=== PATIENT | male | born 1955 | race Caucasian/White ===

== ENCOUNTER 2016-11-17 20:48 | Inpatient (IN) | payer OTHER ==
[~2016-11-17] VITALS: Ht 182.9 cm; Wt 68.5 kg
--- NOTE | 2016-11-17 23:04 | DIAGNOSTIC IMAGING REPORT ---
PROCEDURE: CT HEAD WITHOUT CONTRAST INDICATION: STROKE TECHNIQUE: Axial CT images were acquired through the head. Coronal and sagittal reformations were created. COMPARISON: None. FINDINGS: Minimal cerebral cortical atrophy. Minor hypodensity in the periventricular and subcortical white matter. 8 mm rounded hypodensity in the right caudate body. No focal cortical defects or edema. The goode-white matter differentiation is normal. No intracranial hemorrhage or extraaxial fluid collections. Ventricles are normal in size, shape and position. There is no mass, mass effect or midline shift. Trace calcific atherosclerosis of the intracranial internal carotid arteries. The calvarium is intact. Small dependent left mastoid effusion without coalescence. The paranasal sinuses and right mastoid air cells are normally aerated. The extracranial soft tissues and orbits are normal. IMPRESSION: 1. No CT evidence of acute intracranial process. 2. Small right caudate body hypodensity, potentially a small lacunar infarct. Otherwise minor, probably age related involutional and white matter changes. 3. Findings discussed with Dr. Cabrera at [address] scans at this facility use dose modulation, iterative reconstruction, and/or weight-based dosing when appropriate to reduce radiation dose to as low as reasonably achievable.
--- NOTE | 2016-11-17 23:31 | DIAGNOSTIC IMAGING REPORT ---
PROCEDURE: XR CHEST 2 VIEW INDICATION: Right upper and lower extremity weakness. TECHNIQUE: Two views COMPARISON: None. FINDINGS: The cardiomediastinal contour is normal. No central venous congestion. Expansion of the thoracic AP diameter. Flattening the diaphragm. Coarse upper lobe interstitial markings. No focal consolidation, pleural effusion or pneumothorax. The osseous structures are intact. IMPRESSION: 1. No acute disease. 2. Findings of COPD/emphysema.
[2016-11-18] VITALS (12 sets, daily range): BP systolic 108–149; BP diastolic 71–97
--- NOTE | 2016-11-18 02:10 | ED NURSING NOTES ---
Clinical Report - Nurses [facility] [address] [place] [address] 11/17/2016 20:48 Patient: CHARLETTE COLUNGA TRIAGE Triage time 20:53. Acuity: LEVEL 2. Chief Complaint: WEAKNESS and (Right upper arm and lower leg). PHI COMA SCORE: [place] Coma Scale: 15- eyes open spontaneously (4); best verbal response- oriented x 4 (5); best motor response- obeys commands (6). --20:59 Sheriff Benson R.N. 20:53 11/17/16. BP: 133/85. HR: 87. RR: 19. O2 saturation: 98%. Temp: 98.1 F. Pain level now: 0/10. --20:59 Sheriff Benson R.N. Weight: 68 kg stated. Height/Length: 72 inches Per Patient. BMI: 20.3. --20:53 Sheriff Benson R.N. Medications None. --20:56 Sheriff Benson R.N. Allergies No Known Drug Allergy. --20:56 Sheriff Benson R.N. History Arrived by private vehicle. Historian: patient. Accompanied by friend. This started 2 days ago. ( Woke up two days ago and felt weakness on right arm and right lower leg.). SURGERY HX: No history of previous surgery. SOCIAL HX: Light tobacco smoker- less than 1/2 a pack per day. No alcohol use or drug use. FALL RISK ASSESSMENT: Fall risk assessment completed. No fall risk identified. NUTRITIONAL RISK ASSESSMENT: The nutritional risk assessment revealed no deficiencies. LEARNING NEEDS ASSESSMENT: The learning needs assessment revealed no barriers. FUNCTIONAL ASSESSMENT: Functional assessment performed. Right sided weakness. SKIN INTEGRITY ASSESSMENT: Skin integrity risk assessment completed. No skin integrity risk identified. --20:59 Sheriff Benson R.N. PROBLEMS: Aneurysm, Cerebral. --20:57 Sheriff Benson R.N. PHYSICAL ASSESSMENT To room via wheelchair. Patient gowned. GENERAL / NEURO / PSYCH: Awake. Oriented X 4. Alert. Appears in no acute distress. Speech normal. Mood/affect normal. Finger-nose test severely abnormal on the right. Moves extremities with decreased movement of the left upper and lower extremity. Strength is unequal; left toy stuffer is greater than the right toy stuffer and left foot push/pull is greater than the right foot push/pull. The patient has had new onset of weakness of the right arm, hand, leg and foot. HEENT: No facial asymmetry noted. RESPIRATORY: Respirations not labored. CVS: Capillary refill less than 2 seconds. SKIN: Skin is intact, warm and dry. --21:02 Sheriff Benson R.N. NURSING PROGRESS NOTES Head of bed elevated. Two patient identifiers checked. Call light placed in reach. Side rails up x 2. Bed placed in lowest position. Brakes of bed on. --21: Sheriff Benson R.N. 21:03 11/17/2016 Site #1 started via IV in the left antecubital space with an 18g angiocath, with aseptic technique and good blood return; one attempt. Blood drawn: rainbow set. Labeled in the presence of the patient and sent to the lab. Saline lock flushed with 10 mL saline. --21:03 Sheriff Benson R.N. EKG time: (2100 PM). EKG was performed by a jena and shown to the ED physician and NANOFABRICATION SPECIALIST. --21:04 Sheriff Benson R.N. 22:10 11/17/16. BP: 114/89. HR: 93. RR: 20. O2 saturation: 96% on room air. Pain level now: 06/16. --22:11 Ernestine Blanca it administrator, pulse oximeter and NIBP monitor placed on patient; monitor alarms on. --22:11 Ernestine Blanca 23:19 11/17/16. BP: 120/87. HR: 87. RR: 18. O2 saturation: 97%. --23:20 Sheriff Benson R.N. 02:28 11/18/16. BP: 123/91. HR: 88. RR: 18. O2 saturation: 96%. Temp: 98 F. --: Sheriff Benson R.N. 03:14 11/18/2016 Aspirin PO Tablets 325 mg given. Allergies verified and confirmed 5 rights. --03:14 Ernestine Blanca. DISPOSITION / DISCHARGE 03:20 11/18/16. BP: 130/89. HR: 80. RR: 20. O2 saturation: 98% on room air. Temp: 98 F (oral). Pain level now: 0/10. --03:23 Ernestine Blanca Disposition: observation in Acute Care. Report was given to a nurse via a phone call. Report included patient's care, treatment, medications, reviewed medication reconcilliation, and condition (including any recent changes or anticipated changes). All questions were answered. Report was acknowledged and care was transferred. (Dee Dee LUX). Bed obtained. Patient's personal items include: shirt, pants, shoes and wallet; items were placed in belongings bag and transported with the patient. --03:30 Ernestine Blanca. Locked/Released at 11/22/2016 9:02 by Sheriff Benson R.N.
--- NOTE | 2016-11-18 02:10 | ED ORDER SUMMARY ---
..... Patient: CHARLETTE COLUNGA OrderSheet [facility] VisitID: [id number] [place] [address] 61y, M Registration Date/Time: 11/17/2016 ORDER SHEET Weight: 68.0 kg (stated) Allergies: No Known Drug Allergy GENERAL ORDERS: Chest 2V Urgent (22:11/17/2016 Barbara RAMIREZ) (Ack 22:14 AMcQuoid ER Tech1) (22:38 MCampbell) Wooden Frame Builder (Continuous) (22:11/17/2016 Barbara RAMIREZ) (22:10 SSambou R.N.) CT Head wo Cont Urgent (22:11/17/2016 Barbara RAMIREZ) (Ack 22:14 AMcQuoid ER Tech1) (22:38 MCampbell) Cardiac Panel Stat (22:11/17/2016 Barbara RAMIREZ) (Ack 22:14 AMcQuoid ER Tech1) (23:01 HSoule) CRP Urgent (22:11/17/2016 Barbara RAMIREZ) (Ack 22:14 AMcQuoid ER Tech1) (23:02 HSoule) Pulse oximeter (22:11/17/2016 Barbara RAMIREZ) (22:10 SSambou R.N.) EKG - ER Stat (22:11/17/2016 Barbara RAMIREZ) (22:09 SSambou R.N.) CT Cervical Spine wo Cont Urgent (00:05 11/18/2016 Barbara RAMIREZ) (Ack 0:06 AMcQuoid ER Tech1) (0:28 Willis) UA-Culture if indicated Urgent (02:28 11/18/2016 Barbara RAMIREZ) Urine Drug Screen Urgent (02:11/18/2016 Barbara RAMIREZ) MEDICATION ORDERS: Aspirin PO 325 mg (NOW) (03:09 11/18/2016 Barbara RAMIREZ) (Ack 3:10 HSoule) (3:14 HSoule) IV FLUIDS: IV Saline Lock (22:11/17/2016 Barbara RAMIREZ) (22:10 SSambou R.N.) ORDER SHEET NOTES: [Electronically signed by Kota Cabrera MD (10:08 11/18/2016)] [Electronically signed by Sheriff Gregory Benson (09:11/22/2016)] [Electronically locked/signed by Sheriff Gregory Benson (09:11/22/2016)]
--- NOTE | 2016-11-18 02:10 | ED CLINICAL REPORT ---
Clinical Report - Physicians/Mid Levels [facility] [address] [place] [address] 11/17/2016 20:48 [id number] Time Seen: 21:18 Nov 17 2016. Arrived- By private vehicle. Historian- patient. CPT: ER phys charges level 5 plus (#[id number]). EKG interpretation (#[id number]). HISTORY OF PRESENT ILLNESS Chief Complaint: WEAKNESS and DIFFICULTY STANDING and WALKING. The patient has had weakness of the right arm (moderate), right hand (moderate), right leg (moderate) and right foot (moderate). No numbness, tingling, impaired speech or swallowing or visual disturbance. No recent fall. The patient has had difficulty walking. 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 At its maximum deficit described as moderate. When seen in the E.D.,deficit described as moderate. No dizziness, altered mental status or blackouts. He had a seizure (Had a shaking spell on right side before the weakness came on.). The seizure activity was brief. Usually is alert and oriented X3 and has normal mobility. Similar symptoms previously: None. Recent medical care: Not recently seen/assessed. REVIEW OF SYSTEMS No fever, headache, head injury or injury or chest pain. No difficulty breathing, cough, sputum production or sore throat or throat. No abdominal pain, nausea, diarrhea, black stools or skin rash. No joint pain, vomiting, back pain, numbness or diabetic symptoms. No easy bruising. The patient has had weakness. All systems otherwise negative, except as recorded above. PAST HISTORY ( Aneurysm, Cerebral.). No history of stroke or seizure. SOCIAL HISTORY Light tobacco smoker (cigarette)- less than 1/2 a pack per day. No alcohol use or drug use. ADDITIONAL NOTES The nursing notes have been reviewed. PHYSICAL EXAM Vital Signs: 11/17/2016 20:53 BP: 133/85. HR: 87. RR: 19. O2 saturation: 98%. Temp: 98.1 F. Pain level now: 0/10. Appearance: Alert. No acute distress. Head: Head atraumatic. Eyes: Pupils equal, round and reactive to light. ENT: Normal ENT inspection. Airway intact. Pharynx normal. Neck: Normal inspection. Neck supple. No meningeal signs. CVS: Normal heart rate and rhythm. Heart sounds normal. Pulses normal. No cardiac murmur. Respiratory: No respiratory distress. Breath sounds normal. Abdomen: Soft and nontender. Back: Normal inspection. Skin: Skin warm. Normal skin color. No rash. Extremities: Extremities exhibit normal ROM. No lower extremity edema. Neuro: Alert. Oriented X 3. Mood/affect normal. Speech normal. Cranial nerves normal (as tested). He has had constant, localized weakness of the right arm (moderate), right hand (moderate), right leg (moderate) and right foot (moderate), (Cannot lift leg off gurney. Can hold right arm up with minimal drift.). No sensory deficit. Reflex exam: right biceps 0, left biceps 0, right patellar 0, left patellar 0, right Achilles 0 and left Achilles 0. No depression of the gag reflex. LABS, X-RAYS, AND EKG EKG: Normal sinus rhythm. Right and left atrial enlargement. Normal ALYCIA. Normal QRS complex. Normal axis. Normal ST and T waves. The study has been interpreted contemporaneously. The study has been independently viewed by me. The EKG appears to be a good tracing. Chest X-ray: Hyperinflation present. (COPD). Views: PA and lateral. Technique: good. The X-rays were independently viewed by me and interpreted contemporaneously by me. Prior films were not available for comparison. CT Head: (8mm hypodensity right cuadate body. No obvious infarct or bleed. No aneurysm seen on this study. Mild ASVD.). Head CT performed without contrast. The study was independently viewed by me, interpreted by the radiologist and discussed with the radiologist. Laboratory Tests: CBC w Diff: (KSENIA: 11/17/2016 21:01) ( MsgRcvd 11/17/2016 22:39) Final results Test Result Flag Units (Reference) WHITE BLOOD COUNT 5.8 K/uL (4.5-11.5) RED BLOOD COUNT 5.10 M/uL (4.50-5.90) HEMOGLOBIN 15.5 gm/dL (13.5-17.5) HEMATOCRIT 46.4 % (41.0-53.0) MEAN CELL VOLUME 91 fL (80-100) MEAN CORPUSCULAR HGB 30 pg (26-34) MEAN CORPUSCULAR HGB CONC 33 g/dL (31-37) RED CELL DISTRIBUTION WIDTH 13.9 % (11.6-14.8) PLATELET COUNT 301 K/uL (150-400) NEUTROPHIL % 56.5 % (50-75) LYMPH % 33.4 % (25-40) MONO % 6.8 % (3-14) EOSINOPHIL % 3.0 % (0-4) BASOPHIL % 0.3 % (0-2) [id number]: (KSENIA: 11/17/2016 21:01) ( [facility] 11/17/2016 23:13) Final results Test Result Flag Units (Reference) C-REACTIVE PROTEIN < 0.2 mg/dL (0.0-0.9) CHEM 13 PANEL: (KSENIA: 11/17/2016 21:01) ( [facility] 11/17/2016 22:51) Final results Test Result Flag Units (Reference) GLUCOSE 139 H mg/dL (70-110) BUN 19 H mg/dL (7-18) CREATININE 1.4 H mg/dL (0.6-1.3) Estimated GFR 54.76 mL/min Estimated GFR- >60 mL/min Note: Persistent reduction over 3 months in eGFR<60 mL/min/1.73 m2 defines CKD. Patients with eGFR values>=60 mL/min/1.73 m2 may also have CKD if evidence ofpersistent proteinuria. Additional information may be foundat [email or web address].org. SODIUM 143 mmol/L (136-145) POTASSIUM 3.9 mmol/L (3.5-5.1) CHLORIDE 106 mmol/L (98-107) CARBON DIOXIDE 30 mmol/L (21-32) CALCIUM 9.6 mg/dL (8.5-10.1) TOTAL PROTEIN 6.9 g/dL (6.4-8.2) ALBUMIN 3.8 g/dL (3.3-5.0) BILIRUBIN, TOTAL 0.3 mg/dL (0.0-1.0) ALKALINE PHOSPHATASE 101 U/L (46-116) AST (SGOT) 16 U/L (15-37) ALT (SGPT) 21 U/L (12-78) CPK 93 U/L (24-260) MAGNESIUM 2.0 mg/dL (1.8-2.4) TROPONIN I <0.05 L ng/mL (0.00-1.5) TROPONIN REFERENCE RANGE:<0.1 NEGATIVE0.1-1.5 INDETERMINANT>1.5 POSITIVE . Note - Tests: (CT neck : no acute findings.). PROGRESS AND PROCEDURES Course of Care: Heplock ASA 325 mg po Patient is stable. Discussed case with on-call health care provider, (Kassandra). Reviewed test results. Agreed upon treatment plan. Health care provider will see patient in ED. Patient/family counseled. Old medical records ordered. Disposition orders written. Disposition: Admitted to Acute Care. CLINICAL IMPRESSION Nontraumatic cerebrovascular accident- ischemic infarct involving left middle cerebral artery. TPA was not administered . tPA was not administered because the time patient was last known well was greater than 3 hours prior to arrival. (Electronically signed by Kota Cabrera MD 11/18/2016 10:08)
--- NOTE | 2016-11-18 02:10 | ED CLINICAL REPORT ---
Clinical Report - Physicians/Mid Levels [facility] [address] [place] [address] 11/17/2016 20:48 [id number] Time Seen: 21:18 Nov 17 2016. Arrived- By private vehicle. Historian- patient. CPT: ER phys charges level 5 plus (#[id number]). EKG interpretation (#[id number]). HISTORY OF PRESENT ILLNESS Chief Complaint: WEAKNESS and DIFFICULTY STANDING and WALKING. The patient has had weakness of the right arm (moderate), right hand (moderate), right leg (moderate) and right foot (moderate). No numbness, tingling, impaired speech or swallowing or visual disturbance. No recent fall. The patient has had difficulty walking. 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 At its maximum deficit described as moderate. When seen in the E.D.,deficit described as moderate. No dizziness, altered mental status or blackouts. He had a seizure (Had a shaking spell on right side before the weakness came on.). The seizure activity was brief. Usually is alert and oriented X3 and has normal mobility. Similar symptoms previously: None. Recent medical care: Not recently seen/assessed. REVIEW OF SYSTEMS No fever, headache, head injury or injury or chest pain. No difficulty breathing, cough, sputum production or sore throat or throat. No abdominal pain, nausea, diarrhea, black stools or skin rash. No joint pain, vomiting, back pain, numbness or diabetic symptoms. No easy bruising. The patient has had weakness. All systems otherwise negative, except as recorded above. PAST HISTORY ( Aneurysm, Cerebral.). No history of stroke or seizure. SOCIAL HISTORY Light tobacco smoker (cigarette)- less than 1/2 a pack per day. No alcohol use or drug use. ADDITIONAL NOTES The nursing notes have been reviewed. PHYSICAL EXAM Vital Signs: 11/17/2016 20:53 BP: 133/85. HR: 87. RR: 19. O2 saturation: 98%. Temp: 98.1 F. Pain level now: 0/10. Appearance: Alert. No acute distress. Head: Head atraumatic. Eyes: Pupils equal, round and reactive to light. ENT: Normal ENT inspection. Airway intact. Pharynx normal. Neck: Normal inspection. Neck supple. No meningeal signs. CVS: Normal heart rate and rhythm. Heart sounds normal. Pulses normal. No cardiac murmur. Respiratory: No respiratory distress. Breath sounds normal. Abdomen: Soft and nontender. Back: Normal inspection. Skin: Skin warm. Normal skin color. No rash. Extremities: Extremities exhibit normal ROM. No lower extremity edema. Neuro: Alert. Oriented X 3. Mood/affect normal. Speech normal. Cranial nerves normal (as tested). He has had constant, localized weakness of the right arm (moderate), right hand (moderate), right leg (moderate) and right foot (moderate), (Cannot lift leg off gurney. Can hold right arm up with minimal drift.). No sensory deficit. Reflex exam: right biceps 0, left biceps 0, right patellar 0, left patellar 0, right Achilles 0 and left Achilles 0. No depression of the gag reflex. LABS, X-RAYS, AND EKG EKG: Normal sinus rhythm. Right and left atrial enlargement. Normal ALYCIA. Normal QRS complex. Normal axis. Normal ST and T waves. The study has been interpreted contemporaneously. The study has been independently viewed by me. The EKG appears to be a good tracing. Chest X-ray: Hyperinflation present. (COPD). Views: PA and lateral. Technique: good. The X-rays were independently viewed by me and interpreted contemporaneously by me. Prior films were not available for comparison. CT Head: (8mm hypodensity right cuadate body. No obvious infarct or bleed. No aneurysm seen on this study. Mild ASVD.). Head CT performed without contrast. The study was independently viewed by me, interpreted by the radiologist and discussed with the radiologist. Laboratory Tests: CBC w Diff: (KSENIA: 11/17/2016 21:01) ( MsgRcvd 11/17/2016 22:39) Final results Test Result Flag Units (Reference) WHITE BLOOD COUNT 5.8 K/uL (4.5-11.5) RED BLOOD COUNT 5.10 M/uL (4.50-5.90) HEMOGLOBIN 15.5 gm/dL (13.5-17.5) HEMATOCRIT 46.4 % (41.0-53.0) MEAN CELL VOLUME 91 fL (80-100) MEAN CORPUSCULAR HGB 30 pg (26-34) MEAN CORPUSCULAR HGB CONC 33 g/dL (31-37) RED CELL DISTRIBUTION WIDTH 13.9 % (11.6-14.8) PLATELET COUNT 301 K/uL (150-400) NEUTROPHIL % 56.5 % (50-75) LYMPH % 33.4 % (25-40) MONO % 6.8 % (3-14) EOSINOPHIL % 3.0 % (0-4) BASOPHIL % 0.3 % (0-2) [id number]: (KSENIA: 11/17/2016 21:01) ( [facility] 11/17/2016 23:13) Final results Test Result Flag Units (Reference) C-REACTIVE PROTEIN < 0.2 mg/dL (0.0-0.9) CHEM 13 PANEL: (KSENIA: 11/17/2016 21:01) ( [facility] 11/17/2016 22:51) Final results Test Result Flag Units (Reference) GLUCOSE 139 H mg/dL (70-110) BUN 19 H mg/dL (7-18) CREATININE 1.4 H mg/dL (0.6-1.3) Estimated GFR 54.76 mL/min Estimated GFR- >60 mL/min Note: Persistent reduction over 3 months in eGFR<60 mL/min/1.73 m2 defines CKD. Patients with eGFR values>=60 mL/min/1.73 m2 may also have CKD if evidence ofpersistent proteinuria. Additional information may be foundat www.kidney.org. SODIUM 143 mmol/L (136-145) POTASSIUM 3.9 mmol/L (3.5-5.1) CHLORIDE 106 mmol/L (98-107) CARBON DIOXIDE 30 mmol/L (21-32) CALCIUM 9.6 mg/dL (8.5-10.1) TOTAL PROTEIN 6.9 g/dL (6.4-8.2) ALBUMIN 3.8 g/dL (3.3-5.0) BILIRUBIN, TOTAL 0.3 mg/dL (0.0-1.0) ALKALINE PHOSPHATASE 101 U/L (46-116) AST (SGOT) 16 U/L (15-37) ALT (SGPT) 21 U/L (12-78) CPK 93 U/L (24-260) MAGNESIUM 2.0 mg/dL (1.8-2.4) TROPONIN I <0.05 L ng/mL (0.00-1.5) TROPONIN REFERENCE RANGE:<0.1 NEGATIVE0.1-1.5 INDETERMINANT>1.5 POSITIVE . Note - Tests: (CT neck : no acute findings.). PROGRESS AND PROCEDURES Course of Care: Heplock ASA 325 mg po Patient is stable. Discussed case with on-call health care provider, (Kassandra). Reviewed test results. Agreed upon treatment plan. Health care provider will see patient in ED. Patient/family counseled. Old medical records ordered. Disposition orders written. Disposition: Admitted to Acute Care. CLINICAL IMPRESSION Nontraumatic cerebrovascular accident- ischemic infarct involving left middle cerebral artery. TPA was not administered . tPA was not administered because the time patient was last known well was greater than 3 hours prior to arrival. (Electronically signed by Kota Cabrera MD 11/18/2016 10:08)
--- NOTE | 2016-11-18 02:10 | ED ORDER SUMMARY ---
..... Patient: CHARLETTE COLUNGA OrderSheet [facility] VisitID: [id number] [place] [address] 61y, M Registration Date/Time: 11/17/2016 ORDER SHEET Weight: 68.0 kg (stated) Allergies: No Known Drug Allergy GENERAL ORDERS: Chest 2V Urgent (22:11/17/2016 Barbara RAMIREZ) (Ack 22:14 AMcQuoid ER Tech1) (22:38 MCampbell) Rocket Scientist (Continuous) (22:11/17/2016 Barbara RAMIREZ) (22:10 SSambou R.N.) CT Head wo Cont Urgent (22:11/17/2016 Barbara RAMIREZ) (Ack 22:14 AMcQuoid ER Tech1) (22:38 MCampbell) Cardiac Panel Stat (22:11/17/2016 Barbara RAMIREZ) (Ack 22:14 AMcQuoid ER Tech1) (23:01 HSoule) CRP Urgent (22:11/17/2016 Barbara RAMIREZ) (Ack 22:14 AMcQuoid ER Tech1) (23:02 HSoule) Pulse oximeter (22:11/17/2016 Barbara RAMIREZ) (22:10 SSambou R.N.) EKG - ER Stat (22:11/17/2016 Barbara RAMIREZ) (22:09 SSambou R.N.) CT Cervical Spine wo Cont Urgent (00:05 11/18/2016 Barbara RAMIREZ) (Ack 0:06 AMcQuoid ER Tech1) (0:28 Willis) UA-Culture if indicated Urgent (02:28 11/18/2016 Barbara RAMIREZ) Urine Drug Screen Urgent (02:11/18/2016 Barbara RAMIREZ) MEDICATION ORDERS: Aspirin PO 325 mg (NOW) (03:09 11/18/2016 Barbara RAMIREZ) (Ack 3:10 HSoule) (3:14 HSoule) IV FLUIDS: IV Saline Lock (22:11/17/2016 Barbara RAMIREZ) (22:10 SSambou R.N.) ORDER SHEET NOTES: [Electronically signed by Kota Cabrera MD (10:08 11/18/2016)] [Electronically signed by Sheriff Gregory Benson (09:11/22/2016)] [Electronically locked/signed by Sheriff Gregory Benson (09:11/22/2016)]
--- NOTE | 2016-11-18 02:10 | ED NURSING NOTES ---
Clinical Report - Nurses Merged With [facility] [address] [place] [address] 11/17/2016 20:48 Patient: CHARLETTE COLUNGA TRIAGE Triage time 20:53. Acuity: LEVEL 2. Chief Complaint: WEAKNESS and (Right upper arm and lower leg). PHI COMA SCORE: [place] Coma Scale: 15- eyes open spontaneously (4); best verbal response- oriented x 4 (5); best motor response- obeys commands (6). --20:59 Sheriff Benson R.N. 20:53 11/17/16. BP: 133/85. HR: 87. RR: 19. O2 saturation: 98%. Temp: 98.1 F. Pain level now: 0/10. --20:59 Sheriff Benson R.N. Weight: 68 kg stated. Height/Length: 72 inches Per Patient. BMI: 20.3. --20:53 Sheriff Benson R.N. Medications None. --20:56 Sheriff Benson R.N. Allergies No Known Drug Allergy. --20:56 Sheriff Benson R.N. History Arrived by private vehicle. Historian: patient. Accompanied by friend. This started 2 days ago. ( Woke up two days ago and felt weakness on right arm and right lower leg.). SURGERY HX: No history of previous surgery. SOCIAL HX: Light tobacco smoker- less than 1/2 a pack per day. No alcohol use or drug use. FALL RISK ASSESSMENT: Fall risk assessment completed. No fall risk identified. NUTRITIONAL RISK ASSESSMENT: The nutritional risk assessment revealed no deficiencies. LEARNING NEEDS ASSESSMENT: The learning needs assessment revealed no barriers. FUNCTIONAL ASSESSMENT: Functional assessment performed. Right sided weakness. SKIN INTEGRITY ASSESSMENT: Skin integrity risk assessment completed. No skin integrity risk identified. --20:59 Sheriff Benson R.N. PROBLEMS: Aneurysm, Cerebral. --20:57 Sheriff Benson R.N. PHYSICAL ASSESSMENT To room via wheelchair. Patient gowned. GENERAL / NEURO / PSYCH: Awake. Oriented X 4. Alert. Appears in no acute distress. Speech normal. Mood/affect normal. Finger-nose test severely abnormal on the right. Moves extremities with decreased movement of the left upper and lower extremity. Strength is unequal; left transfer driver is greater than the right transfer driver and left foot push/pull is greater than the right foot push/pull. The patient has had new onset of weakness of the right arm, hand, leg and foot. HEENT: No facial asymmetry noted. RESPIRATORY: Respirations not labored. CVS: Capillary refill less than 2 seconds. SKIN: Skin is intact, warm and dry. --21:02 Sheriff Benson R.N. NURSING PROGRESS NOTES Head of bed elevated. Two patient identifiers checked. Call light placed in reach. Side rails up x 2. Bed placed in lowest position. Brakes of bed on. --21: Sheriff Benson R.N. 21:03 11/17/2016 Site #1 started via IV in the left antecubital space with an 18g angiocath, with aseptic technique and good blood return; one attempt. Blood drawn: rainbow set. Labeled in the presence of the patient and sent to the lab. Saline lock flushed with 10 mL saline. --21:03 Sheriff Benson R.N. EKG time: (2100 PM). EKG was performed by a jena and shown to the ED physician and HOSPICE HOME HEALTH AIDE. --21:04 Sheriff Benson R.N. 22:10 11/17/16. BP: 114/89. HR: 93. RR: 20. O2 saturation: 96% on room air. Pain level now: 06/16. --22:11 Ernestine Blanca playground monitor, pulse oximeter and NIBP monitor placed on patient; monitor alarms on. --22:11 Ernestine Blanca 23:19 11/17/16. BP: 120/87. HR: 87. RR: 18. O2 saturation: 97%. --23:20 Sheriff Benson R.N. 02:28 11/18/16. BP: 123/91. HR: 88. RR: 18. O2 saturation: 96%. Temp: 98 F. --: Sheriff Benson R.N. 03:14 11/18/2016 Aspirin PO Tablets 325 mg given. Allergies verified and confirmed 5 rights. --03:14 Ernestine Blanca. DISPOSITION / DISCHARGE 03:20 11/18/16. BP: 130/89. HR: 80. RR: 20. O2 saturation: 98% on room air. Temp: 98 F (oral). Pain level now: 0/10. --03:23 Ernestine Blanca Disposition: observation in Acute Care. Report was given to a nurse via a phone call. Report included patient's care, treatment, medications, reviewed medication reconcilliation, and condition (including any recent changes or anticipated changes). All questions were answered. Report was acknowledged and care was transferred. (Dee Dee LUX). Bed obtained. Patient's personal items include: shirt, pants, shoes and wallet; items were placed in belongings bag and transported with the patient. --03:30 Ernestine Blanca. Locked/Released at 11/22/2016 9:02 by Sheriff Benson R.N.
--- NOTE | 2016-11-18 02:37 | Progress Note ---
Subjective General Admission History and Physical Examination Patient Name: Jelani Hendrickson Admission Date: November 18, 2016 Primary Care Provider: None Attending Physician: Martin Forman M.D. Admitting Physician: Nic Cannon M.D. Code Status: FULL CODE Room: 210-B Status: Inpatient, ACU SUBJECTIVE Historian: Patient Reliability: Fair Chief Complaint: Right upper and lower extremity weakness History of Present Illness: The patient is a 61-year-old white male with a significant past medical history of cerebral aneurysm, nicotine dependence-smoking, who presented to [facility] emergency department on the day of admission secondary complaints of right upper and lower extremity weakness of 2 days duration. [facility] ER evaluation was consistent with left-sided CVA with right-sided weakness. Secondary to the above, the patient was admitted by Nic Cannon M.D. for further evaluation and treatment. PAST MEDICAL HISTORY Illnesses: 1. 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 Hearing loss-left ear Allergies: 1. NKDA Medications: 1. None Surgery: 1. Tendon (R) biceps Injuries: 1. No significant Hospitalizations: 1. Viral meningitis FAMILY HISTORY Parents: 1. Father, Crow, , 70, depression 2. Mother, Cindy, , 72, cancer type unknown Siblings: 1. The patient has 7 male siblings all of which are in good health Children: 1. None Other significant family history: None SOCIAL HISTORY 1. Marital Status: Single 2. Hindu: Anglican 3. 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 Occupational health exposures: Lead HABITS 1. Tobacco: Cigarettes 45 pack years, 1 pack per day 2. Drugs: None 3. Alcohol: None 4. Caffeine: Coffee-3 cups per day, soft drinks-3 cans per day HEALTH SUPERVISION Item/Test 1. No recent IMMUNIZATIONS: 1. Pneumococcal: No previous 2. Influenza: No previous 3. Tetanus: 2009 ADVANCED DIRECTIVES: 1. Living well: No 2. POLST: No 3. Code Status: FULL CODE 4. 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 Donor card: No REVIEW OF SYSTEMS Remarkable for those things stated in the history of present illness and past medical history. Seventeen point review of system completed with the following notable findings: Ears: Left ear hearing loss/deafness Mouth: Edentulous Musculoskeletal: Shoulder pain, backache This 17 point review system is otherwise unremarkable/noncontributory with no abnormalities noted Physical Exam Vital Signs / I&Os Blood pressure: 133/85 mmHg Heart rate: 87/minute Respiratory rate: 19/minute Temperature: 98.1 Fahrenheit orally Pulse oximetry: 98% room air General Appearance Alert, Oriented X3, Cooperative, No acute distress HEENT Atraumatic, PERRLA, EOMI, Moist mucous membranes Lungs Clear to auscultation, Normal air movement Neck Supple, No JVD, No masses, 2+ carotid pulse wo bruit Cardiovascular Regular rate and rhythm, Normal S1 and S2, No murmurs, gallops, rubs Abdomen Normal bowel sounds, Soft, No tenderness, No guarding Extremities No cyanosis, No clubbing, No edema Neurological Cranial nerves intact, right upper/lower ext weakness. No facial weakness or CN abnormalities noted. Psych/Mental Status Mental status normal, Mood normal LAB Results Laboratory Tests 11/17 11/17 2101 2101 Chemistry Plasma Sodium (136 - 145 mmol/L) 143 Plasma Potassium (3.5 - 5.1 mmol/L) 3.9 Plasma Chloride (98 - 107 mmol/L) 106 CO2 (Enzymatic) (21 - 32 mmol/L) 30 BUN (7 - 18 mg/dL) 19 Creatinine (0.6 - 1.3 mg/dL) 1.4 Est GFR ( Amer) (mL/min) >60 Est GFR (Non-Af Amer) (mL/min) 54.76 Glucose (70 - 110 mg/dL) 139 Plasma Calcium (8.5 - 10.1 mg/dL) 9.6 Plasma Magnesium (1.8 - 2.4 mg/dL) 2.0 Total Bilirubin (0.0 - 1.0 mg/dL) 0.3 AST (15 - 37 U/L) 16 ALT (12 - 78 U/L) 21 Alkaline Phosphatase (46 - 116 U/L) 101 Creatine Kinase (24 - 260 U/L) 93 Troponin (0.00 - 1.5 ng/mL) <0.05 C-Reactive Protein (0.0 - 0.9 mg/dL) < 0.2 Total Protein (6.4 - 8.2 g/dL) 6.9 Albumin (3.3 - 5.0 g/dL) 3.8 Hematology WBC (4.5 - 11.5 K/uL) 5.8 RBC (4.50 - 5.90 M/uL) 5.10 Hgb (13.5 - 17.5 gm/dL) 15.5 Hct (41.0 - 53.0 %) 46.4 MCV (80 - 100 fL) 91 MCH (26 - 34 pg) 30 RDW (11.6 - 14.8 %) 13.9 Neut % (Auto) (50 - 75 %) 56.5 Lymph % (Auto) (25 - 40 %) 33.4 [place] % (Auto) (3 - 14 %) 6.8 Eos % (Auto) (0 - 4 %) 3.0 Baso % (Auto) (0 - 2 %) 0.3 Plt Count, EDTA (150 - 400 K/uL) 301 PUBS MCHC (31 - 37 g/dL) [address] Scan Head IMPRESSION: 1. No CT evidence of acute intracranial process. 2. Small right caudate body hypodensity, potentially a small lacunar infarct. Otherwise minor, probably age related involutional and white matter changes. 3. Findings discussed with Dr. Cabrera at 2250 hours. Dictated by: SHEA CAMPOS MD D: IGNACIO;11/17/16 4342 Chest X-Ray IMPRESSION: 1. No acute disease. 2. Findings of COPD/emphysema. Dictated by: SHEA CAMPOS MD D: IGNACIO;11/17/16 2330 Assessment and Plan Problem List 1. CVA (cerebral vascular accident) Status Acute Onset Date Unknown Plan -Patient presents with findings of right upper and lower extremity weakness. -Patient able to move against gravity -we'll obtain physical therapy consultation -Chek MRI/MRA -check carotid Doppler ultrasound -aspirin -check lipid profile/statin -monitor 2. Hearing loss Status Chronic Onset Date Unknown Plan -Patient with chronic hearing loss left ear -outpatient follow-up with PCP 3. 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 Nicotine dependence Status Chronic Onset Date Unknown Plan -Patient with history of nicotine dependence-smoking -smoking cessation education -NicoDerm patch as necessary -encourage smoking abstinence post discharge Current status: Fair, unstable Anticipated discharge date: Anticipated discharge in 2-3 days Anticipated discharge placement: Home Patient care time: Time in chart review, patient interview, physical exam, CPOE, and care documentation: 70 mins Visit to patient today: 1 Complexity of care: High DVT prophylaxis: Lovenox E&M Codes Admission: Inpt-High/45252
--- NOTE | 2016-11-18 02:37 | Progress Note ---
Subjective General Admission History and Physical Examination Patient Name: Jelani Hendrickson Admission Date: November 18, 2016 Primary Care Provider: None Attending Physician: Martin Forman M.D. Admitting Physician: Nic Cannon M.D. Code Status: FULL CODE Room: 210-B Status: Inpatient, ACU SUBJECTIVE Historian: Patient Reliability: Fair Chief Complaint: Right upper and lower extremity weakness History of Present Illness: The patient is a 61-year-old white male with a significant past medical history of cerebral aneurysm, nicotine dependence-smoking, who presented to [facility] emergency department on the day of admission secondary complaints of right upper and lower extremity weakness of 2 days duration. [facility] ER evaluation was consistent with left-sided CVA with right-sided weakness. Secondary to the above, the patient was admitted by Nic Cannon M.D. for further evaluation and treatment. PAST MEDICAL HISTORY Illnesses: 1. 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 Hearing loss-left ear Allergies: 1. NKDA Medications: 1. None Surgery: 1. Tendon (R) biceps Injuries: 1. No significant Hospitalizations: 1. Viral meningitis FAMILY HISTORY Parents: 1. Father, Crow, , 70, depression 2. Mother, Cindy, , 72, cancer type unknown Siblings: 1. The patient has 7 male siblings all of which are in good health Children: 1. None Other significant family history: None SOCIAL HISTORY 1. Marital Status: Single 2. Gnosticist: Mosque 3. 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 Occupational health exposures: Lead HABITS 1. Tobacco: Cigarettes 45 pack years, 1 pack per day 2. Drugs: None 3. Alcohol: None 4. Caffeine: Coffee-3 cups per day, soft drinks-3 cans per day HEALTH SUPERVISION Item/Test 1. No recent IMMUNIZATIONS: 1. Pneumococcal: No previous 2. Influenza: No previous 3. Tetanus: 2009 ADVANCED DIRECTIVES: 1. Living well: No 2. POLST: No 3. Code Status: FULL CODE 4. 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 Donor card: No REVIEW OF SYSTEMS Remarkable for those things stated in the history of present illness and past medical history. Seventeen point review of system completed with the following notable findings: Ears: Left ear hearing loss/deafness Mouth: Edentulous Musculoskeletal: Shoulder pain, backache This 17 point review system is otherwise unremarkable/noncontributory with no abnormalities noted Physical Exam Vital Signs / I&Os Blood pressure: 133/85 mmHg Heart rate: 87/minute Respiratory rate: 19/minute Temperature: 98.1 Fahrenheit orally Pulse oximetry: 98% room air General Appearance Alert, Oriented X3, Cooperative, No acute distress HEENT Atraumatic, PERRLA, EOMI, Moist mucous membranes Lungs Clear to auscultation, Normal air movement Neck Supple, No JVD, No masses, 2+ carotid pulse wo bruit Cardiovascular Regular rate and rhythm, Normal S1 and S2, No murmurs, gallops, rubs Abdomen Normal bowel sounds, Soft, No tenderness, No guarding Extremities No cyanosis, No clubbing, No edema Neurological Cranial nerves intact, right upper/lower ext weakness. No facial weakness or CN abnormalities noted. Psych/Mental Status Mental status normal, Mood normal LAB Results Laboratory Tests 11/17 11/17 2101 2101 Chemistry Plasma Sodium (136 - 145 mmol/L) 143 Plasma Potassium (3.5 - 5.1 mmol/L) 3.9 Plasma Chloride (98 - 107 mmol/L) 106 CO2 (Enzymatic) (21 - 32 mmol/L) 30 BUN (7 - 18 mg/dL) 19 Creatinine (0.6 - 1.3 mg/dL) 1.4 Est GFR ( Amer) (mL/min) >60 Est GFR (Non-Af Amer) (mL/min) 54.76 Glucose (70 - 110 mg/dL) 139 Plasma Calcium (8.5 - 10.1 mg/dL) 9.6 Plasma Magnesium (1.8 - 2.4 mg/dL) 2.0 Total Bilirubin (0.0 - 1.0 mg/dL) 0.3 AST (15 - 37 U/L) 16 ALT (12 - 78 U/L) 21 Alkaline Phosphatase (46 - 116 U/L) 101 Creatine Kinase (24 - 260 U/L) 93 Troponin (0.00 - 1.5 ng/mL) <0.05 C-Reactive Protein (0.0 - 0.9 mg/dL) < 0.2 Total Protein (6.4 - 8.2 g/dL) 6.9 Albumin (3.3 - 5.0 g/dL) 3.8 Hematology WBC (4.5 - 11.5 K/uL) 5.8 RBC (4.50 - 5.90 M/uL) 5.10 Hgb (13.5 - 17.5 gm/dL) 15.5 Hct (41.0 - 53.0 %) 46.4 MCV (80 - 100 fL) 91 MCH (26 - 34 pg) 30 RDW (11.6 - 14.8 %) 13.9 Neut % (Auto) (50 - 75 %) 56.5 Lymph % (Auto) (25 - 40 %) 33.4 [place] % (Auto) (3 - 14 %) 6.8 Eos % (Auto) (0 - 4 %) 3.0 Baso % (Auto) (0 - 2 %) 0.3 Plt Count, EDTA (150 - 400 K/uL) 301 PUBS MCHC (31 - 37 g/dL) [address] Scan Head IMPRESSION: 1. No CT evidence of acute intracranial process. 2. Small right caudate body hypodensity, potentially a small lacunar infarct. Otherwise minor, probably age related involutional and white matter changes. 3. Findings discussed with Dr. Cabrera at 2250 hours. Dictated by: SHEA CAMPOS MD D: IGNACIO;11/17/16 1508 Chest X-Ray IMPRESSION: 1. No acute disease. 2. Findings of COPD/emphysema. Dictated by: SHEA CAMPOS MD D: IGNACIO;11/17/16 2339 Assessment and Plan Problem List 1. CVA (cerebral vascular accident) Status Acute Onset Date Unknown Plan -Patient presents with findings of right upper and lower extremity weakness. -Patient able to move against gravity -we'll obtain physical therapy consultation -Chek MRI/MRA -check carotid Doppler ultrasound -aspirin -check lipid profile/statin -monitor 2. Hearing loss Status Chronic Onset Date Unknown Plan -Patient with chronic hearing loss left ear -outpatient follow-up with PCP 3. 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 Nicotine dependence Status Chronic Onset Date Unknown Plan -Patient with history of nicotine dependence-smoking -smoking cessation education -NicoDerm patch as necessary -encourage smoking abstinence post discharge Current status: Fair, unstable Anticipated discharge date: Anticipated discharge in 2-3 days Anticipated discharge placement: Home Patient care time: Time in chart review, patient interview, physical exam, CPOE, and care documentation: 70 mins Visit to patient today: 1 Complexity of care: High DVT prophylaxis: Lovenox E&M Codes Admission: Inpt-High/60928
--- NOTE | 2016-11-18 05:01 | NUR ---
Patient here for s/sx CVA. Patient has right sided weakness and is very unsteady on his feet. Patient is alert and oriented though he states he is very stebbins in his left ear. No hearing aid. Patient states he lives in his own home with his melvin dog. There is no address or phone number on face sheet but patient does have a phone. His skin is fairly dirty and dry and he has scattered scabs on his forearms. Patient states he has no dentures nor any teeth. No home medications or allergies. Patient does claim he has "been told" he had an aneurysm and has had meningitis. Patient was told to use urinal and then used toilet and flushed. will continue to monitor for patient progress.
--- NOTE | 2016-11-18 08:03 | NUR ---
PT RESTING IN BED, AWAKE, INTRODUCED SELF, UPDATED WHITEBOARD, DISCUSSED POC. PT C/O WEAKNESS AND NUMBNESS TO R SIDE, DIFFICULTY SPEAKING, REITERATED TO PT THAT HE HAS HAD A STROKE, EXPLAINED WHY HE IS HAVING THESE SYMPTOMS. HE NODDED AND STATED THAT HE REMEMBERED BEING TOLD THAT. HE IS UNDERSTANDING AND COOPERATIVE WITH PLAN OF CARE. DISCUSSED PHYSICAL THERAPY AND HIS NEED TO STAY IN BED FOR FALLS PREVENTION AND THAT WE WILL PROVIDE HIM WITH A WALKER AND WILL BE ASSISTING HIM IN/OUT OF BED. PT VERBALIZED UNDERSTANDING, BED ALARM ON. PT TO SHOWER THIS AM. PT ASKING TO SMOKE, REFUSED NICOTINE PATCH.
--- NOTE | 2016-11-18 11:00 | NUR ---
RECEIVED A COMPLETE BED BATH AND HAIR WASH. NEW LINENS PLACED. PT C/O "NOT BEING ABLE TO MOVE MY RIGHT ARM AND LEG VERY WELL." NEURO CHECKS DONE. RIGHT SIDED WEAKNESS NOTED. RYLAN AND RLE. RIGHT SIDED DRIFT ALSO NOTED. NO FACIAL NEURO DEFICITS NOTED. SPEECH CLEAR. DENIES PAIN. WILL GO DOWN FOR MRI OF THE HEAD LATER THIS AM.
--- NOTE | 2016-11-18 12:16 | DIAGNOSTIC IMAGING REPORT ---
PROCEDURE: US BILATERAL CAROTID DOPPLER INDICATION: CVA TECHNIQUE: Color Doppler duplex imaging of the carotid and vertebral vessels. COMPARISON: None. FINDINGS: Minimal plaque formation of the vessels are patent. Right common carotid artery peak systolic velocity 79 cm/second. Right internal carotid artery peak systolic velocity 62 cm/second. Right external carotid artery peak systolic velocity 99 cm/second. Right fxetytuy-wa-jycfdp carotid artery ratio 0.8 Right vertebral artery peak systolic velocity 28 cm/second antegrade. Left common carotid artery peak systolic velocity 87 cm/second. Left internal carotid artery peak systolic velocity 73 cm/second. Left external carotid artery peak systolic velocity 85 cm/second. Left zyibrjhe-wr-ccrwmc carotid artery ratio 1.3 Left vertebral artery peak systolic velocity 42 cm/second antegrade. IMPRESSION: 1. Minimal plaque formation without hemodynamically significant lesion 2. Bilateral ICA 1- 15% stenosis Velocity criteria are extrapolated from diameter data as defined by the Society of Radiologists in Ultrasound Consensus Conference, Radiology 2003; 229; 340-346.
--- NOTE | 2016-11-18 12:16 | DIAGNOSTIC IMAGING REPORT ---
PROCEDURE: US BILATERAL CAROTID DOPPLER INDICATION: CVA TECHNIQUE: Color Doppler duplex imaging of the carotid and vertebral vessels. COMPARISON: None. FINDINGS: Minimal plaque formation of the vessels are patent. Right common carotid artery peak systolic velocity 79 cm/second. Right internal carotid artery peak systolic velocity 62 cm/second. Right external carotid artery peak systolic velocity 99 cm/second. Right lovwokwn-pr-gglkhm carotid artery ratio 0.8 Right vertebral artery peak systolic velocity 28 cm/second antegrade. Left common carotid artery peak systolic velocity 87 cm/second. Left internal carotid artery peak systolic velocity 73 cm/second. Left external carotid artery peak systolic velocity 85 cm/second. Left tpdtamwe-po-fnmsnh carotid artery ratio 1.3 Left vertebral artery peak systolic velocity 42 cm/second antegrade. IMPRESSION: 1. Minimal plaque formation without hemodynamically significant lesion 2. Bilateral ICA 1- 15% stenosis Velocity criteria are extrapolated from diameter data as defined by the Society of Radiologists in Ultrasound Consensus Conference, Radiology 2003; 229; 340-346.
--- NOTE | 2016-11-18 12:21 | DIAGNOSTIC IMAGING REPORT ---
PROCEDURE: CT CERVICAL SPINE W/O CONTRAST CLINICAL INDICATION: PAIN TECHNIQUE: Noncontrast axial images with sagittal and coronal reformations. COMPARISON: None. FINDINGS: Moderate to severe multilevel degenerative changes, most prominent at C6-7. Normal alignment without fracture. Moderate bilateral foraminal stenosis at C3-4, C5-6 and C6-7. Mild spinal stenosis at the C3-4 C5-6 and C6-7. Emphysematous changes of the lung apices. Minor opacification of the bilateral mastoids. IMPRESSION: 1. No acute abnormality 2. Moderately severe degenerative changes 3. Minor opacification of the bilateral mastoids. 4. Preliminary results submitted by Dr. Holland, [facility] radiology. All CT scans at this facility use dose modulation, iterative reconstruction, and/or weight-based dosing when appropriate to reduce radiation dose to as low as reasonably achievable.
--- NOTE | 2016-11-18 12:37 | DIAGNOSTIC IMAGING REPORT ---
PROCEDURE: MR BRAIN WITHOUT CONTRAST INDICATION: r/o cerebral infarct TECHNIQUE: T1 sagittal and T2 coronal images. T1, T2, FLAIR, gradient, and diffusion axial images of the brain. Following 10 ml of ProHance, FAT-SAT T1 sagittal, axial and coronal images were obtained. COMPARISON: Head CT 11/17/2016. FINDINGS: Mild motion artifacts. There is a 12 x 4 mm left pontine acute CVA without hemorrhage. Old 7 mm lacunar infarct of the body of the right caudate. Normal sulci and ventricular system. Mild chronic ischemic changes of the white matter and marleen. No evidence of a mass or abnormal enhancement. Vascular flow voids are noted. The globes and orbits are unremarkable. Normal sinuses. Bilateral mastoid opacification, left greater than right. IMPRESSION: 1. Acute left pontine CVA 2. Old lacunar infarct of the right caudate body 3. Mild chronic ischemic changes of the white matter and marleen 4. Bilateral mastoiditis 5. Results discussed with Dr. Forman
--- NOTE | 2016-11-18 18:01 | NUR ---
PT RIGHT SIDED WEAKNESS TO RU & RL EXTREMITY WAXES AND WANES. SBA WITH WALKER FROM BED TO CHAIR FOR MEALS. TELE SHOWS NSR WITH HR IN THE 60'S. DENIES NUMBNESS FOR TINGLING IN EXTREMETIES. NO FACIAL ASYMMETRY NOTED. DENIES PAIN. APPETITE GOOD. WCTM.
--- NOTE | 2016-11-18 22:57 | NUR ---
Pt. continues to have R sided weakness in both R arm and R leg. No facial drooping noted. Pt. is pleasant and cooperative. Denies pain. Call light on for safety as patient forgets limitations. Pt. is oriented. Snack at bed time. WCTM.
[2016-11-19 02:12] VITALS: BP 139/78
--- NOTE | 2016-11-19 02:47 | NUR ---
Pt. has been resting throughout shift. C/o back pain, tylenol given and effective. Bed alarm on for safety. WCTM.
[2016-11-19 07:14] VITALS: BP 133/75
--- NOTE | 2016-11-19 09:02 | NUR ---
Pt independently sitting up and eating breakfast using left hand to eat. States no pain, wanting to walk in hallway to "get side to start working and follow directions" Bed alarm on. Pt was able to use urinal while sitting on side of bed. Speech is clear. No issues at this time. wctm.
--- NOTE | 2016-11-19 10:34 | NUR ---
Pt took shower, tolerated well, iv is reinstated. Pt states not wanting to be here tomorrow and wants to return home. head of global strategic partnerships Yolanda stated that pt was unstable while walking back from shower, takes time for leg to move forward. Currently sitting in chair and brushing hair. wctm.
[2016-11-19 10:51] VITALS: BP 128/90
--- NOTE | 2016-11-19 12:47 | NUR ---
PT USED RHAND TO EAT WITH, GRASP TECHNIQUE ALTERED AND UNCOORDINATED BUT SUCCESSFULLY ATE SHERBERT. PT IS UNDERSTANDING IMPORTANCE OF STAYING AND WORKING WITH PT VERSUS HEADING HOME. SPEAKS CLEARLY AND NO FACIAL DROOP.
[2016-11-19 14:47] VITALS: BP 124/87
--- NOTE | 2016-11-19 15:07 | Progress Note ---
Subjective General Patient seen and examined this morning. Patient has no acute events overnight. Currently patient claims that he is having return of function of the right side. Patient is still walking with assistance. Patient will need to be evaluated by physical therapy tomorrow for possible outpatient. Constitutional Denies: Fever, Chills, Sweats, Weakness, Malaise, Other. Eyes Denies: Pain, Vision Change, Conjunctival Inflammation, Eyelid Inflammation, Redness, Other. ENT Denies: Ear Pain, Ear Discharge, Nose Pain, Nasal Discharge, Nasal Congestion, Mouth Pain, Mouth Swelling, Throat Pain, Throat Swelling, Other. Respiratory Denies: Cough, Dry, SOB w/exertion, Wheezing, Hemoptysis, Pleuritic Pain, Sputum , Other. Cardiovascular Denies: Chest Pain, Palpitations, Orthopnea, PND, Edema, Light-headedness, Other. Gastrointestinal Denies: Nausea, Vomiting, Abdominal Pain, Diarrhea, Constipation, Melena, Hematochezia, Other. Genitourinary Denies: Dysuria, Frequency, Incontinence, Hematuria, Retention, Other. Musculoskeletal Denies: Neck Pain, Shoulder Pain, Arm Pain, Back Pain, Hand Pain, Leg Pain, Foot Pain, Other. Skin Denies: Rash, Lesions, Jaundice, Bruising, Other. Neurological Weakness, Incoordination. Denies: Numbness, Change in speech, Confusion, Seizures, Other. Physical Exam Vital Signs / I&Os Vital Signs Date Time Temp Pulse Resp B/P Pulse O2 O2 Flow FiO2 Ox Delivery Rate 11/19 1447 98.8 75 16 124/87 96 Room Air 11/19 1051 98.1 65 18 128/90 96 Room Air 11/19 0820 Room Air 0.0 11/19 0714 98.1 55 18 133/75 96 Room Air 11/19 0212 98.2 76 15 139/78 97 Room Air 11/18 2138 97.9 69 16 134/79 98 Room Air 11/18 1847 121/75 11/18 1846 98.4 76 16 108/71 99 Room Air I&O 11/18 0800 11/18 1600 11/19 0000 Intake Total 077 162 2463 Output Total 525 425 Balance 300 -225 578 General Appearance Alert, Oriented X3, No acute distress HEENT Atraumatic, PERRLA, Moist mucous membranes Lungs Clear to auscultation, Normal air movement Neck No JVD, No masses, No thyromegaly Cardiovascular Regular rate and rhythm, Normal S1 and S2 Abdomen Normal bowel sounds, Soft, No tenderness Extremities No edema, No tenderness Skin No Breakdown Neurological Normal speech, Normal tone, Sensation intact, Cranial nerves intact , No lateralizing signs, - 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 - right leg weakness against gravity Psych/Mental Status Mood normal LAB Results Laboratory Tests 11/19 11/19 11/19 0500 0545 0545 Chemistry Plasma Sodium (136 - 145 mmol/L) Cancelled 139 Plasma Potassium (3.5 - 5.1 mmol/L) Cancelled 4.1 Plasma Chloride (98 - 107 mmol/L) Cancelled 105 CO2 (Enzymatic) (21 - 32 mmol/L) Cancelled 26 BUN (7 - 18 mg/dL) Cancelled 15 Creatinine (0.6 - 1.3 mg/dL) Cancelled 1.1 Est GFR ( Amer) (mL/min) Cancelled >60 Est GFR (Non-Af Amer) (mL/min) Cancelled >60 Glucose (70 - 110 mg/dL) Cancelled 86 Hemoglobin A1c % (4.5 - 6.2 %) 5.8 Plasma Calcium (8.5 - 10.1 mg/dL) Cancelled 8.6 Total Bilirubin (0.0 - 1.0 mg/dL) 0.3 AST (15 - 37 U/L) 16 ALT (12 - 78 U/L) 18 Alkaline Phosphatase (46 - 116 U/L) 85 Total Protein (6.4 - 8.2 g/dL) 6.0 Albumin (3.3 - 5.0 g/dL) 3.1 Hematology WBC (4.5 - 11.5 K/uL) 4.8 RBC (4.50 - 5.90 M/uL) 4.85 Hgb (13.5 - 17.5 gm/dL) 14.7 Hct (41.0 - 53.0 %) 43.9 MCV (80 - 100 fL) 90 MCH (26 - 34 pg) 30 RDW (11.6 - 14.8 %) 13.5 Neut % (Auto) (50 - 75 %) 50.0 Lymph % (Auto) (25 - 40 %) 37.9 [place] % (Auto) (3 - 14 %) 7.8 Eos % (Auto) (0 - 4 %) 3.7 Baso % (Auto) (0 - 2 %) 0.6 Plt Count, EDTA (150 - 400 K/uL) 281 PUBS MCHC (31 - 37 g/dL) 33 Assessment and Plan Problem List 1. 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 Nicotine dependence Status Chronic Onset Date Unknown Plan We'll encourage patient to stop smoking Patient is amenable to the idea
--- NOTE | 2016-11-19 17:04 | NUR ---
Wallking hallway every hour using FWW. Right leg is no longer dragging.
--- NOTE | 2016-11-19 18:09 | NUR ---
Pt is asking several questions about CVA and what needs to be done at home. Answered questions and provided Yellow Stroke Packet.
[2016-11-19 18:31] VITALS: BP 145/81
--- NOTE | 2016-11-19 21:45 | NUR ---
Patient mobilised around the ferreira while assisted before settling in bed. Continues to have weakness on right extremities but maintains sensation in it.
[2016-11-19 22:31] VITALS: BP 145/75
[2016-11-20 02:47] VITALS: BP 130/88
[2016-11-20 07:07] VITALS: BP 137/86
--- NOTE | 2016-11-20 07:57 | NUR ---
First look on pt this morning. Pt was angrily yelling at someone while sitting on side of bed. I asked who was he yelling at "that girl, she is yelling at me and won't go away, she is angry and going to hurt me. " This RN sat next to pt and stated you are safe, i will protect you. Pt began sobbing, stating "i am feeling depressed today, i want to smoke and i can't, this is not going well" Talked with pt about bump in the road. Pt stated that spirits come see him and say angry things, they are everywhere, 500 faces staring at me" Pt was angry when expressing and sharing. This RN called security for safety, and had Yolanda and myself take pt in wheelchair to the garden. Stayed near the entrance and listened to the birds and practiced deep breathing. Pt was crying and sharing about life. Smokes Meth to stop the voices and to have energy to live life and get things done. MD SENA is in room and speaking with pt now. TERRELL
--- NOTE | 2016-11-20 08:52 | NUR ---
pt is looking out window, calm and states "sorry for upsetting you guys, it's part of me and I don't know how to handle it".
--- NOTE | 2016-11-20 11:06 | NUR ---
PT WAS YELLING AND THIS RN RAN INTO ROOM WHERE WITNESSED PT WAS USING USING L HAND AND HITTING OWN HAND STATING "GET OUT, GET OUT, STOP HURTING ME" PT WAS CRYING. COULDN'T LOOK ME IN THE EYES. HAD PT AMBULATE IN HALLWAY USING FWW ASSISTED BY INDUSTRIAL AUTOMATION SPECIALIST BECKIE. TERRELL.
[2016-11-20 11:08] VITALS: BP 123/78
--- NOTE | 2016-11-20 12:15 | NUR ---
SLEEPING IN CHAIR, DO NOT WANT TO DISTURB HIS REST. WCTM.
[2016-11-20 14:33] VITALS: BP 122/93
--- NOTE | 2016-11-20 14:54 | NUR ---
I discussed with the patient their current medications, possible side effects, and answered questions.
[2016-11-20] MEDS ORDERED: ASPIRIN81 M1 PO (15:23)
[2016-11-20] MEDS ORDERED: ATORVASTATIN CA20 MG PO (15:24)
--- NOTE | 2016-11-20 15:24 | Provider's Discharge Care Plan ---
Problem, Goal, Plan Problem List 1. CVA (cerebral vascular accident) Instructions: - take aspirin and cholesterol medication 2. Nicotine dependence Instructions: Stop smoking
--- NOTE | 2016-11-20 15:24 | Provider's Discharge Care Plan ---
Problem, Goal, Plan Problem List 1. CVA (cerebral vascular accident) Instructions: - take aspirin and cholesterol medication 2. Nicotine dependence Instructions: Stop smoking
--- NOTE | 2016-11-20 15:24 | NUR ---
PT'S IV HAS BEEN REMOVED WITHOUT ISSUE, TELE D/C'D, AND PAPERWORK GONE OVER AND PLACED IN HANDS. ANSWERED ALL QUESTIONS, HELPED PACK UP BELONGINGS INCLUDING WAFFLE MATTRESS. PT ESCORTED TO ENTRANCE BY FIRE DISPATCHER NILE VIA WHEELCHAIR.
--- NOTE | 2016-11-20 16:03 | Discharge Summary ---
Discharge Summary Report Admit Date 11/18/16 Discharge Date 11/20/16 Admission Diagnosis right sided weakness Discharge Diagnosis right sided weakness and visual/auditory hallucinations Brief History please refer to admission H&P Hospital Course Patient was admitted for right sided weakness. Initial CT scan in the ER revealed chronic lacunar infarcts however no acute lesion was seen. Patient on exam in the am was seen to hve persistent right sided weakness that was inconsistent in nature and did not follow a typical nerve distribution. Patient was urged to work to the best of his ability. Patients only persistent neurological findings were incordination which was right dominant. Patient had an MRI done which showed the presenece of a pontine infarct. Patient was informed of this, and he seemed releived to know that something was found, and he expressed that his weakness/incoordination were improving. Patient that night was seen to complain of visual and auditory hallucinations. Patient expressed that he sees faces in the trees and parking lot and sometimes these faces talk to him. Patient at this point was held from discharge and in the mean time physical therapy assessed the patient, who beleived that the patient was stable enough to go home with home physical therapy. In the mean time a mental health evaluation was called, and it was decided that the patient was not in immediate danger, and should not be held. Patient knew that his hallucinations were not present, and had insight to his problem, in that he knew that they were a manifestation of his disease process. Patient agreed to go to a mental health appointment once discharged. The time and date of his appointment was given to him and additionally relayed to his friend that was assisting him after discharge. Patient understands about his medication regimen, and his upcoming appointments. General Appearance Alert, Oriented X3, No acute distress HEENT PERRLA, EOMI Lungs Normal air movement Cardiovascular No murmurs, Gallops, Rubs Abdomen Soft, No tenderness Skin No Breakdown Psych/Mental Status Mood NL, - admits to auditory and visual hallucinations on questioning Discharge Instructions/Meds - take aspiring and statin - follow up with mental health appointment
--- NOTE | 2016-11-22 09:02 | ED DISCHARGE INSTRUCTIONS ---
Patient: CHARLETTE COLUNGA General Instructions [facility] VisitID: [id number] [address] [place] [address] 61y, M Registration Date/Time: 11/17/2016 Nontraumatic cerebrovascular accident- ischemic infarct involving left middle cerebral artery. TPA was not administered . tPA was not administered because the time patient was last known well was greater than 3 hours prior to arrival. (Electronically signed by Kota Caberra MD 11/18/2016 10:08)
--- NOTE | 2016-11-22 09:02 | ED MED RECONCILIATION SUMMARY ---
Patient: CHARLETTE COLUNGA Medication Reconciliation Report [facility] VisitID: [id number] [address] [place] [address] 61y, M Registration Date/Time: 11/17/2016 Weight: 68.0 kg Height/Length: 72 in. BMI: 20.3 ALLERGIES: No Known Drug Allergy The patient's Home Medications are listed below: NONE. The source(s) of the original Home Medication information: Not obtained. The following Medications were given to the patient in the Emergency Department: Aspirin [PO] PO 325 mg, administered: 11/18/2016 3:14:00 AM The following Medications were prescribed to the patient: None.
--- NOTE | 2016-11-22 09:02 | ED MAR SUMMARY ---
..... Medication Administration Record [facility] [address] [place] [address] Patient: CHARLETTE COLUNGA Visit ID: [id number] 61y, M Weight: 68.0 kg Height/Length: 72 in BMI: 20.3 ALLERGIES: No Known Drug Allergy Given 03:14 11/18/2016 Ernestine Blanca, Medication Administered: ASPIRIN [PO], Dose: 325 mg Tablets PO. Medication Ordered: Aspirin PO 325 mg (NOW).
--- NOTE | 2016-11-22 09:02 | ED MAR SUMMARY ---
..... Medication Administration Record [facility] [address] [place] [address] Patient: CHARLETTE COLUNGA Visit ID: [id number] 61y, M Weight: 68.0 kg Height/Length: 72 in BMI: 20.3 ALLERGIES: No Known Drug Allergy Given 03:14 11/18/2016 Ernestine Blanca, Medication Administered: ASPIRIN [PO], Dose: 325 mg Tablets PO. Medication Ordered: Aspirin PO 325 mg (NOW).
--- NOTE | 2016-11-22 09:02 | ED DISCHARGE INSTRUCTIONS ---
Patient: CHARLETTE COLUNGA General Instructions [facility] VisitID: [id number] [address] [place] [address] 61y, M Registration Date/Time: 11/17/2016 Nontraumatic cerebrovascular accident- ischemic infarct involving left middle cerebral artery. TPA was not administered . tPA was not administered because the time patient was last known well was greater than 3 hours prior to arrival. (Electronically signed by Kota Cabrera MD 11/18/2016 10:08)
--- NOTE | 2016-11-22 09:02 | ED MED RECONCILIATION SUMMARY ---
Patient: CHARLETTE COLUNGA Medication Reconciliation Report [facility] VisitID: [id number] [address] [place] [address] 61y, M Registration Date/Time: 11/17/2016 Weight: 68.0 kg Height/Length: 72 in. BMI: 20.3 ALLERGIES: No Known Drug Allergy The patient's Home Medications are listed below: NONE. The source(s) of the original Home Medication information: Not obtained. The following Medications were given to the patient in the Emergency Department: Aspirin [PO] PO 325 mg, administered: 11/18/2016 3:14:00 AM The following Medications were prescribed to the patient: None.
== END 2016-11-20 16:00 | disposition home health service (06) | DRG 45 ==
LOC: ED SRH 20:48 → TRANS SRH 11-18 02:20 → ACUTE2 SRH 11-18 02:20 → TRANS SRH 11-18 02:20 → ACUTE2 SRH 11-18 04:10
PROVIDERS: ADMIT Internal Medicine
DX: I63.9 Cerebral infarction, unspecified (principal); G81.91 Hemiplegia, unspecified affecting right dominant side; R27.8 Other lack of coordination; R44.1 Visual hallucinations; R44.0 Auditory hallucinations; Z86.79 Personal history of other diseases of the circulatory system; F17.210 Nicotine dependence, cigarettes, uncomplicated; H91.92 Unspecified hearing loss, left ear
CPT/HCPCS: 90004; 90074; 90098; 90100; 90616; 91286; 91585; 92610; 92690; 92720; 92760; 92761; 92762; 92763; 92764; 92765; 92766; 92767; 94001; 94060; 95059